=== PATIENT | male | born 2000 | race Two or more races ===

== ENCOUNTER 2021-03-01 22:37 | Emergency (ER) | payer OTHER ==
[~2021-03-01] VITALS: Ht 175.3 cm; Wt 118.2 kg
[2021-03-02 00:23] VITALS: BP 125/57
== END 2021-03-02 02:25 | disposition home or self-care (01) ==
LOC: EMS 22:48
DX: L60.0 Ingrowing nail (principal)
CPT/HCPCS: 99283